=== PATIENT | male | born 1990 | race Caucasian/White ===

== ENCOUNTER 2021-12-23 22:08 | Emergency (ER) | payer BC, SELFPAY ==
[2021-12-23 22:12] VITALS: BP 142/97; PULSE 88; RESP 18; TEMP 36.4; O2SAT 98; BMI 28.8
--- NOTE | 2021-12-23 22:25 | XRR_ITS ---
PROCEDURE INFORMATION: Exam: XR Thoracic Spine Exam date and time: 12/23/2021 11:08 PM Age: 31 years old Clinical indication: Pain in thoracic spine; Additional info: Back pain TECHNIQUE: Imaging protocol: Radiologic exam of the thoracic spine. Views: 3 views. COMPARISON: No relevant prior studies available. FINDINGS: Bones/joints: Normal. No acute fracture. Normal alignment. Soft tissues: Unremarkable. XR/XR thoracic spine 2V [id number] IMPRESSION: No acute findings.
--- NOTE | 2021-12-23 22:25 | CTR_ITS ---
PROCEDURE INFORMATION: Exam: CT Head Without Contrast Exam date and time: 12/23/2021 10:48 PM Age: 31 years old Clinical indication: Syncope and collapse; Patient HX: Witnessed syncopal episode with possible seizure. Type 1 diabetic. ; Additional info: Fall syncope TECHNIQUE: Imaging protocol: Computed tomography of the head without contrast. Radiation optimization: All CT scans at this facility use at least one of these dose optimization techniques: automated exposure control; mA and/or kV adjustment per patient size (includes targeted exams where dose is matched to clinical indication); or iterative reconstruction. COMPARISON: No relevant prior studies available. RADIATION DOSE METRICS: Total DLP (mGy-cm): 971.56 FINDINGS: Brain: Normal. No hemorrhage. Unremarkable white matter. No mass effect. Cerebral ventricles: No ventriculomegaly. Paranasal sinuses: Visualized sinuses are unremarkable. No fluid levels. Mastoid air cells: Visualized mastoid air cells are well aerated. Bones/joints: Unremarkable. No acute fracture. Soft tissues: Unremarkable. CT/CT head wo con* [id number] IMPRESSION: No acute intracranial abnormality.
--- NOTE | 2021-12-23 22:28 | ED_ITS ---
Documented by User: Arleth Hernandez MD 12/23/21 22:33 HPI - General Adult General: Chief complaint: Syncope Stated complaint: Hypoglycemia Time Seen by Provider: 12/23/21 22:16 History of Present Illness: 31-year-old male with history of type 1 diabetes on mealtime insulin presenting to the emergency room after episode of hypoglycemia and possible seizure versus syncope. Patient tells me that he took about 6 units of aspart earlier tonight did not really eat anything for dinner. However around 9:30, patient was witnessed to have an episode of seizure while sitting on the couch by multiple people. Patient also had 1 episode of emesis. Patient was confused after. EMS was called, patient had a glucose at the time of 45. Patient received 125 cc of D10 and 12.5 mg of Phenergan for nausea vomiting. Patient had a glucose improvement to over 200. However shortly after arriving, patient is noted to be lightheaded. Patient is AOx3 answering all my questions. Patient is found to have a glucose of 49 on repeat in the emergency room. Patient denies any sulfonylurea use. Patient denies taking any other insulin at any time. Onset: 9:30pm Duration:seizure once Location:home Severity:severe Associated symptoms: Reports nausea and vomiting; Deny chest pain, dyspnea, rash or palpitations Review of Systems Const: Denies: fever(s) or chills Eyes: Denies: change in vision ENMT: Denies: mouth pain Card: Denies: chest pain or palpitations Resp: Denies: dyspnea or non-productive cough GI: Reports: nausea and vomiting; Denies: abdominal pain or diarrhea : Denies: dysuria Musc: Denies: extremity pain Skin/Breast: Denies: rash or new lesions Neuro: Reports: other (+light-headedness); Denies: weakness in extremities Psych: Reports: other (Normal mood) Vj/Lymph: Denies: easy bruising PFS ED PFSH: Medical History (Updated 12/24/21 @ 00:04 by Matti Garcia DO) Type 1 diabetes Social History (Updated 12/23/21 @ 22:31 by Arleth Hernandez MD) Smoking and tobacco status: never smoked Alcohol intake: never Substance/Drug Use: never Physical Exam Const: COMMON NORMALS: alert HENMT: COMMON NORMALS: atraumatic HEAD & SCALP: atraumatic MOUTH: moist mucous membranes not abnormal Eye: COMMON NORMALS: EOMs intact bilaterally and conjunctivae normal CONJUNCTIVA: Yes conjunctivae normal Neck/C-Spine: COMMON NORMALS: full ROM and supple Resp: COMMON NORMALS: normal respiratory effort and clear to auscultation bilaterally AUSCULTATION: clear to auscultation bilaterally Cardio: COMMON NORMALS: regular rate RATE: regular rate GI: COMMON NORMALS: Soft to palpation and non-tender PALPATION: Yes Soft to palpation Back/Pelvis: OTHER: + Patient has mid thoracic midline tenderness to palpation Extremity: COMMON NORMALS: full ROM Neuro: SENSORIUM/ORIENTATION: Yes alert MOTOR EXAM: No Abnormal motor strength present and Other motor observations present (no focal motor deficits) OTHER: Mental status? Awake, alert, and oriented to self, year, month, location, and situation.? Following simple axial and appendicular commands.? Has appropriate fund of knowledge, comprehension, and insight.? Able to recall and understands pertinent aspects of medical history and current treatment status.? ? Language? Speech is fluent without word-finding difficulties.? Intact naming, expression, receptionist clerk, and repetition.? ? Cranial nerves? 2,3,4,6: PERRL, EOMI with no nystagmus. 5: Intact sensation to light touch, symmetric? 7: Smile symmetrical, no facial droop.? 8: Hearing grossly intact.? 9,10: Normal palate movement.? 11: Normal strength in trapezius bilaterally 12: Tongue protrudes midline.? ? Motor examination? Normal bulk & tone. Strength as follows (R/L): Delts (5/5), Biceps (5/5), Triceps (5/5), Wrist ext (5/5), hip flexors (5/5), plantarflexors (5/5), dorsiflexors (5/5). ? Sensation? Light Touch: Grossly intact and equal in upper and lower extremities bilaterally? Romberg: Negative.? Distal joint position sense intact ? Coordination? Egyktg-ts-gsvb-finger movements intact without dysmetria or past-pointing.? Rapid fingertaps: preserved amplitude without decriment.? No tremor, myoclonus or truncal ataxia.? ? Psych: COMMON NORMALS: speech normal SPEECH: Yes normal speech MOOD & AFFECT: Yes euthymic mood Course Vital Signs: Vital signs: Vital Signs Temperature 98.2 F 12/24/21 00:19 Pulse Rate 90 12/24/21 00:19 Respiratory Rate 18 12/24/21 00:19 Blood Pressure 147/100 12/24/21 00:19 Pulse Oximetry 98 12/24/21 00:19 MDM - General Adult Medical Decision Making 31-year-old male with a history of type 1 diabetes presenting to the emergency room for concerns of hyperglycemia in the setting of syncope versus seizure. On physical exam, patient neurologically intact currently. Unable to assess gait due to lightheadedness. Patient also has mid thoracic tenderness to palpation. On arrival, patient glucose 49. Patient received 1 amp of D50 as well as 75 cc/h of D10. We will repeat glucose every 30 minutes. X-ray of thoracic spine not showing signs of fracture. CT head negative for any signs of acute bleed. Case signed out to Dr. Garcia pending reassessment Lab Data : 12/23/21 22:36 12/23/21 22:[address] 12/23/21 22:25 IMPRESSION: No acute intracranial abnormality. Thoracic Spine X-Ray 12/23/21 22:25 IMPRESSION: No acute findings. Laboratory Results WBC 17.7 10^3/uL (4.0-10.0) H 12/23/21 22:36 RBC 4.93 10^6/uL (4.1-5.3) 12/23/21 22:36 Hgb 14.9 g/dL (11.7-16.6) 12/23/21 22:36 Hct 42.6 % (42.0-52.0) 12/23/21 22:36 MCV 86.4 fl (80-94) 12/23/21 22:36 MCH 30.2 pg (28.0-34.0) 12/23/21 22:36 MCHC 35.0 g/dL (30.0-36.0) 12/23/21 22:36 RDW 12.8 % (12.1-15.1) 12/23/21 22:36 Plt Count 261 10^3/cmm (130-400) 12/23/21 22:36 MPV 8.8 fL (7.4-10.4) 12/23/21 22:36 Neut % (Auto) 82.4 % 12/23/21 22:36 Lymph % (Auto) 8.7 % 12/23/21 22:36 Huron % (Auto) 6.3 % 12/23/21 22:36 Eos % (Auto) 0.7 % 12/23/21 22:36 Baso % (Auto) 0.4 % 12/23/21 22:36 Neut # (Auto) 14.54 10^3/uL (1.8-7.7) H 12/23/21 22:36 Lymph # (Auto) 1.5 10^3/uL (0.8-4.8) 12/23/21 22:36 [place] # (Auto) 1.1 10^3/uL (0.2-0.9) H 12/23/21 22:36 Eos # (Auto) 0.1 10^3/uL (0.0-0.8) 12/23/21 22:36 Baso # (Auto) 0.1 10^3/uL (0.0-0.1) 12/23/21 22:36 Nucleated RBC % (auto) 0 % 12/23/21 22:36 Nucleated RBCs # 0.0 /100WBC 12/23/21 22:36 Sodium Cancelled 12/23/21 22:36 Potassium Cancelled 12/23/21 22:36 Chloride Cancelled 12/23/21 22:36 Carbon Dioxide Cancelled 12/23/21 22:36 Anion Gap Cancelled 12/23/21 22:36 BUN Cancelled 12/23/21 22:36 Creatinine Cancelled 12/23/21 22:36 GFR Calculation Cancelled 12/23/21 22:36 Glucose Cancelled 12/23/21 22:36 POC Glucose 158 mg/dL (70-110) H 12/23/21 23:52 Calculated Osmolality Cancelled 12/23/21 22:36 Calcium Cancelled 12/23/21 22:36 Discharge Plan Discharge Patient Disposition: Home Clinical Impression: Hypoglycemia, Back pain Condition: Stable Discharge Orders: Discharge ED (Routine); Ordered 12/24/21 Ordered By: Matti Garcia Discharge Diet: Advance as tolerated Discharge Activity: Increase activity as tolerated Patient Instructions: Hypoglycemia Activity Restrictions/Additional Instructions: Come back if you have any new or concerning issues. Coding Level of Care Code ED Gas Operations Analyst for Chg Fwd Exam Comprehensive Documented by User: Matti Garcia DO 12/24/21 16:50 HPI - General Adult General: Chief complaint: Syncope Stated complaint: Hypoglycemia Time Seen by Provider: 12/23/21 22:16 [facility] ED PFSH: Medical History (Updated 12/24/21 @ 00:04 by Matti Garcia DO) Type 1 diabetes Social History (Updated 12/23/21 @ 22:31 by Arleth Hernandez MD) Smoking and tobacco status: never smoked Alcohol intake: never Substance/Drug Use: never Course Vital Signs: Vital signs: Vital Signs Temperature 98.2 F 12/24/21 00:19 Pulse Rate 90 12/24/21 00:19 Respiratory Rate 18 12/24/21 00:19 Blood Pressure 147/100 12/24/21 00:19 Pulse Oximetry 98 12/24/21 00:19 [facility] - General Adult Medical Decision Making 31-year-old male with a history of type 1 diabetes presenting to the emergency room for concerns of hypoglycemia in the setting of syncope versus seizure. On physical exam, patient neurologically intact currently. Unable to assess gait due to lightheadedness. Patient also has mid thoracic tenderness to palpation. On arrival, patient glucose 49. Patient received 1 amp of D50 as well as 75 cc/h of D10. We will repeat glucose every 30 minutes. X-ray of thoracic spine not showing signs of fracture. CT head negative for any signs of acute bleed. Case signed out to Dr. Garcia pending reassessment year old type one diabetic checked out to me at shift change by the previous physician. His blood sugar has stabilized. He has eaten in the ER. He is still complaining of some mid back pain, although he is non tachycardic, non hypoxic, not short of breath, and is tender there. X ray is negative. Head CT is negative. There'll be a lot discharged. He will awake every two to three hours to check his blood sugar this morning. They know to return for any new or concerning symptoms. Lab Data : 12/23/21 22:36 12/23/21 22:[address] 12/23/21 22:25 IMPRESSION: No acute intracranial abnormality. Thoracic Spine X-Ray 12/23/21 22:25 IMPRESSION: No acute findings. Laboratory Results WBC 17.7 10^3/uL (4.0-10.0) H 12/23/21 22:36 RBC 4.93 10^6/uL (4.1-5.3) 12/23/21 22:36 Hgb 14.9 g/dL (11.7-16.6) 12/23/21 22:36 Hct 42.6 % (42.0-52.0) 12/23/21 22:36 MCV 86.4 fl (80-94) 12/23/21 22:36 MCH 30.2 pg (28.0-34.0) 12/23/21 22:36 MCHC 35.0 g/dL (30.0-36.0) 12/23/21 22:36 RDW 12.8 % (12.1-15.1) 12/23/21 22:36 Plt Count 261 10^3/cmm (130-400) 12/23/21 22:36 MPV 8.8 fL (7.4-10.4) 12/23/21 22:36 Neut % (Auto) 82.4 % 12/23/21 22:36 Lymph % (Auto) 8.7 % 12/23/21 22:36 [place] % (Auto) 6.3 % 12/23/21 22:36 Eos % (Auto) 0.7 % 12/23/21 22:36 Baso % (Auto) 0.4 % 12/23/21 22:36 Neut # (Auto) 14.54 10^3/uL (1.8-7.7) H 12/23/21 22:36 Lymph # (Auto) 1.5 10^3/uL (0.8-4.8) 12/23/21 22:36 [place] # (Auto) 1.1 10^3/uL (0.2-0.9) H 12/23/21 22:36 Eos # (Auto) 0.1 10^3/uL (0.0-0.8) 12/23/21 22:36 Baso # (Auto) 0.1 10^3/uL (0.0-0.1) 12/23/21 22:36 Nucleated RBC % (auto) 0 % 12/23/21 22:36 Nucleated RBCs # 0.0 /100WBC 12/23/21 22:36 Sodium Cancelled 12/23/21 22:36 Potassium Cancelled 12/23/21 22:36 Chloride Cancelled 12/23/21 22:36 Carbon Dioxide Cancelled 12/23/21 22:36 Anion Gap Cancelled 12/23/21 22:36 BUN Cancelled 12/23/21 22:36 Creatinine Cancelled 12/23/21 22:36 GFR Calculation Cancelled 12/23/21 22:36 Glucose Cancelled 12/23/21 22:36 POC Glucose 158 mg/dL (70-110) H 12/23/21 23:52 Calculated Osmolality Cancelled 12/23/21 22:36 Calcium Cancelled 12/23/21 22:36 Discharge Plan Discharge Patient Disposition: Home Clinical Impression: Hypoglycemia, Back pain Condition: Stable Discharge Orders: Discharge ED (Routine); Ordered 12/24/21 Ordered By: Matti Garcia Discharge Diet: Advance as tolerated Discharge Activity: Increase activity as tolerated Patient Instructions: Hypoglycemia Activity Restrictions/Additional Instructions: Come back if you have any new or concerning issues. Coding Level of Care Code ED Gas Operations Analyst for Odalis Fwd Exam Comprehensive
[2021-12-23] MEDS: dextrose 50% syringe 50 mL (22:32)
--- NOTE | 2021-12-23 22:32 | ECG_ITS ---
[facility] Test Date: 2021-12-23 Pat Name: Osmin Hair Department: Room: Gender: Male Executive Relations Specialist: : [id number] Requested By: Arleth Hernandez Order Number: [id number] Aquino MD: Chadd Perry M.D. Measurements Intervals Jackson Rate: 80 P: 60 MD: 163 QRS: 25 QRSD: 96 T: 49 QT: 351 QTc: 407 Interpretive Statements SINUS RHYTHM No previous ECG available for comparison Electronically Signed On 12-24-2021 12:28:53 CDT by Chadd Perry M.D. [email or web address]
[2021-12-23 22:33] LABS: Glucose Point of Care 49 mg/dL (70-110)
[2021-12-23] MEDS: dextrose 10% 1,000 ML 125 ML IV (22:43)
[2021-12-23 22:47] LABS: Basophils # 0.1 10^3/uL (0.0-0.1); Basophils % 0.4 %; Eosinophils # 0.1 10^3/uL (0.0-0.8); Eosinophils % 0.7 %; Hematocrit 42.6 % (42.0-52.0); Hemoglobin 14.9 g/dL (11.7-16.6); Lymphocytes # 1.5 10^3/uL (0.8-4.8); Lymphocytes % 8.7 %; Mean Corpuscular Hemoglobin 30.2 pg (28.0-34.0); Mean Corpuscular Volume 86.4 fl (80-94); Mean Platelet Volume 8.8 fL (7.4-10.4); Monocytes # 1.1 10^3/uL (0.2-0.9); Monocytes % 6.3 %; Neutrophils # 14.54 10^3/uL (1.8-7.7); Neutrophils % 82.4 %; Nucleated Red Blood Cells % 0 %; Platelet Count 261 10^3/cmm (130-400); Red Blood Count 4.93 10^6/uL (4.1-5.3); Red Cell Distribution Width 12.8 % (12.1-15.1); White Blood Count 17.7 10^3/uL (4.0-10.0)
[2021-12-23 22:55] LABS: Glucose Point of Care 145 mg/dL (70-110)
[2021-12-23 23:57] LABS: Glucose Point of Care 158 mg/dL (70-110)
[2021-12-24 00:19] VITALS: BP 147/100; PULSE 90; RESP 18; TEMP 36.8; O2SAT 98
[2021-12-24] MEDS: oxyCODONE-APAP 5-325 mg Tablet 1 TAB PO (00:19)
== END 2021-12-24 00:21 | disposition home or self-care (01) ==
PROVIDERS: Emergency Medicine; Emergency Provider Emergency Medicine
DX: M54.9 Dorsalgia, unspecified (principal); E10.649 Type 1 diabetes mellitus with hypoglycemia without coma; Z79.4 Long term (current) use of insulin
CPT/HCPCS: 36416; 70450; 72070; 82962; 85025; 93005; 99284